=== PATIENT | female | born 1955 | race Caucasian/White ===

== ENCOUNTER 2016-09-21 08:00 | Inpatient (IN) ==
[2016-09-15 16:00] LABS: Basophils # (Auto) 0 K/mcL (0.0-0.3); Basophils % (Auto) 0.5 % (0.0-2.0); Eosinophils # (Auto) 0.3 K/mcL (0.0-0.7); Eosinophils % (Auto) 2.7 % (0.0-7.0); Granulocytes % (Auto) 53.7 % (38.0-78.0); Lymphocytes # (Auto) 3.4 K/mcL (1.5-4.8); Lymphocytes % (Auto) 36.5 % (15.5-49.0); Mean Cell Volume 88.3 fL (80.0-100.0); Mean Corpuscular HGB Conc 31.8 g/dL (31.0-36.0); Mean Corpuscular Hemoglobin 28.1 pg (26.0-34.0); Monocytes # (Auto) 0.6 K/mcL (0.1-0.9); Monocytes % (Auto) 6.6 % (1.0-9.0); Platelet Count 301 K/mcL (140-440); RBC 4.87 M/mcL (4.00-5.20); Red Cell Distribution Width 13.1 % (11.5-14.5)
[2016-09-15 16:08] LABS: Blood Urea Nitrogen 20 mg/dl (8-23)
[~2016-09-21 08:00] MED LIST: ACETAMINOPHEN 500 MG TABLET PO SCH; CELECOXIB 200 MG CAPSULE PO SCH; PREGABALIN 150 MG CAPSULE PO SCH; ceFAZolin 1 GM VIAL IV SCH; oxyCODONE 10 MG TAB.ER.12H PO SCH
[2016-09-21 09:37] LABS: Appearance,Urine CLOUDY; Bacteria,Urine MANY /hpf (0); Bilirubin,Urine NEG (NEG); Color,Urine YELLOW; Glucose,Urine (UA) NEGATIVE (NEG); Leukocyte Esterase,Urine 25 /uL (NEG); Mucus,Urine MOD /hpf (0); Nitrate,Urine NEG (NEG); Protein,Urine NEG (NEG); Specific Gravity,Urine 1.017 (1.000-1.035); Urine Amorphous Crystals MANY /hpf (0); Urine Blood 0.03 mg/dL (<0.03); Urine RBC 5 /hpf (0-1); Urine Squamous Epithelial Cell 15 /hpf (0-4); Urine WBC 9 /hpf (0-4); Urobilinogen,Urine NEG (NEG)
[2016-09-21] MEDS ORDERED: LIDOCAINE HCL/PF 100 MG/5 ML SYRINGE IV ONE (12:15)
[2016-09-21] MEDS ORDERED: ONDANSETRON 4 MG/2 ML VIAL IV ONE (12:15)
[2016-09-21] MEDS ORDERED: DEXAMETHASONE 10 MG/ML VIAL IV ONE (12:15)
[2016-09-21] MEDS ORDERED: PROPOFOL 200 MG/20 ML VIAL IV ONE (12:15)
[2016-09-21] MEDS ORDERED: SUCCINYLCHOLINE 20 MG/ML ML IV ONE (12:15)
[2016-09-21] MEDS ORDERED: ePHEDrine 50 MG/ML AMPUL IV ONE (12:15)
[2016-09-21] MEDS ORDERED: MIDAZOLAM 5 MG/5 ML VIAL IV ONE (12:15)
[2016-09-21] MEDS ORDERED: TRANEXAMIC ACID 1,000 MG/10 ML VIAL IV ONE ×2 (12:15→13:42)
[2016-09-21] MEDS ORDERED: PHENYLEPHRINE 10 MG/ML VIAL IV ONE (12:15)
[2016-09-21] MEDS ORDERED: ROCURONIUM 10 MG/ML ML IV ONE (12:15)
[2016-09-21] MEDS ORDERED: GENTAMICIN SULFATE 800 MG/20 ML VIAL IR ONE (12:48)
[2016-09-21] MEDS ORDERED: FLUMAZENIL 0.1 MG/ML ML IV PRN (13:26)
[2016-09-21] MEDS ORDERED: ONDANSETRON 4 MG/2 ML VIAL IV PRN ×2 (13:26→13:42)
[2016-09-21] MEDS ORDERED: PROMETHAZINE 25 MG/ML VIAL IM ONE (13:26)
[2016-09-21] MEDS ORDERED: NALOXONE HCL 0.4 MG/ML VIAL IV PRN (13:26)
[2016-09-21] MEDS ORDERED: IPRATROPIUM/ALBUTEROL 3 ML AMPUL.NEB NEB PRN (13:26)
[2016-09-21] MEDS ORDERED: BENZOCAINE/MENTHOL 1 LOZENGE PO PRN ×2 (13:26→13:42)
[2016-09-21] MEDS ORDERED: HYDROmorphone 2 MG/ML SYRINGE IV PRN ×2 (13:26→13:42)
[2016-09-21] MEDS ORDERED: diphenhydrAMINE 50 MG/ML VIAL IV PRN (13:26)
[2016-09-21] MEDS ORDERED: LACTATED RINGERS 250 ML IV PRN (13:26)
[2016-09-21] MEDS ORDERED: MEPERIDINE 25 MG/ML SYRINGE IV PRN (13:26)
[2016-09-21] MEDS ORDERED: PROMETHAZINE 25 MG/ML VIAL IV PRN (13:26)
[2016-09-21] MEDS ORDERED: METHOCARBAMOL 1,000 MG/10 ML VIAL IV PRN (13:26)
[2016-09-21] MEDS ORDERED: METOCLOPRAMIDE 10 MG/2 ML VIAL IV PRN (13:26)
[2016-09-21] MEDS ORDERED: ePHEDrine 50 MG/ML AMPUL IV PRN (13:26)
[2016-09-21] MEDS ORDERED: fentaNYL 100 MCG/2 ML VIAL IV PRN (13:26)
[2016-09-21] MEDS ORDERED: MEPERIDINE 50 MG/ML SYRINGE IM ONE (13:26)
[2016-09-21] MEDS ORDERED: LACTATED RINGERS 1,000 ML IV SCH (13:30)
[2016-09-21] MEDS ORDERED: MAGNESIUM HYDROXIDE 30 ML ORAL.SUSP PO PRN (13:42)
[2016-09-21] MEDS ORDERED: KETOROLAC 15 MG/ML VIAL IV PRN (13:42)
[2016-09-21] MEDS ORDERED: BISACODYL 10 MG SUPP.RECT PR PRN (13:42)
[2016-09-21] MEDS ORDERED: POLYETHYLENE GLYCOL 3350 17 GM PACKET PO PRN (13:42)
[2016-09-21] MEDS ORDERED: FLEETS ADULT ENEMA PR PRN (13:42)
[2016-09-21] MEDS ORDERED: ACETAMINOPHEN 325 MG TABLET PO PRN (13:42)
--- NOTE | 2016-09-21 13:48 | Brief Operative Note ---
Date of procedure: 09/21/16 Pre-op diagnosis: right hip djd Post-op diagnosis: same Procedure: right total hip cemented Grafts/Implants: Yes Anesthesia: GETA Findings: severe djd Surgeon: Milton Keys Per Diem Clerk: Atul Owens Estimated blood loss (cc): 50 Specimens Removed/Pathology: none sent Condition: stable Disposition: PACU
[2016-09-21] MEDS ORDERED: NAPROXEN 250 MG TABLET PO PRN (13:53)
--- NOTE | 2016-09-21 14:29 | XRay Report ---
CLINICAL INFORMATION: Pelvis and right hip TECHNIQUE: AP pelvis. AP and lateral right hip. COMPARISON: None. FINDINGS: Status right total hip arthroplasty. Acetabular and femoral head complements are in anatomic positions. There is degenerative joint disease in the left hip. Degenerative disc disease in the lower lumbar spine. IMPRESSION: Status post right total hip arthroplasty Interpreted and Authenticated by: Dayton Bradshaw 09/21/16
[2016-09-21] MEDS: 0.45 % SODIUM CHLORIDE 1,000 ML IV SCH (15:01)
[2016-09-21] MEDS: 0.9 % SODIUM CHLORIDE 10 ML SYRINGE IV SCH ×2 (15:02→22:04)
--- NOTE | 2016-09-21 15:57 | Operative Note ---
DATE OF OPERATION: 09/21/2016 PREOPERATIVE DIAGNOSIS: Right hip degenerative arthritis. POSTOPERATIVE DIAGNOSIS: Right hip degenerative arthritis. PROCEDURE: Right total hip arthroplasty with the superior posterior approach. SURGEON: Milton Keys MD. HUB CUTTER APPRENTICE: Atul Owens PA-C. ANESTHESIA: General LMA anesthesia. COMPLICATIONS: None. ESTIMATED BLOOD LOSS: About 50 mL. IMPLANTS: A cemented 5 stem with a 52 cup with one 30 mm screw with a dual mobility liner and a +2.5 neck length. X-rays were taken during the case. DESCRIPTION OF PROCEDURE: The patient was brought to the operating room and put to sleep with general LMA anesthesia. Once asleep, the patient had the right hip sterilely prepped and draped in the left lateral position. The superior posterior approach was performed. Once this was sterilely prepped and draped, we placed Ioban over the skin and made a superior posterior approach. We identified the capsule which was released superiorly, kept intact the anterior and posterior musculature. We dislocated the hip superior posteriorly and made our neck cut at 30 mm from the center of rotation of the ball. Once this was cut, we then subluxed the hip anteriorly with retractors, removed the labrum and reamed up to the size 52. Once this was done, we then implanted a 52 cup with a 30 mm screw, placed a dual mobility liner. We then prepared the femur, broached up to the size 5, trialed the size 5 cementless stem. The 2.5 seemed to be the most appropriate. We then took an x-ray to confirm that this leg was slightly longer, as the other side has severe arthritis as well. This was appropriate for length. We then cemented into place this 5 stem with a distal canal restrictor, placed the version of about 10 to 15 degrees of anteversion. Excess cement was removed. Once dry, we retrialed the 2.5 neck length. It was appropriate with a ceramic head. Dual mobility ball was finally implanted with a 2.5 mm neck length. We irrigated thoroughly, and closed the capsule with #2 Ethibond, closed the fascial layer with 2-0 Vicryl and 0 Vicryl. We closed the skin with 0 Vicryl and 2-0 Vicryl and adhesive closure. The patient tolerated this well without complication. BIANKA:mayra Job ID: [id number] Doc ID: [id number] Milton Keys MD
[2016-09-21] MEDS: HYDROcodone/APAP 10/325MG TABLET PO PRN ×2 (18:46→20:09)
[2016-09-21] MEDS: SENNOSIDES 1 TABLET PO SCH (20:42)
[2016-09-21] MEDS: metFORMIN 500 MG TABLET PO SCH (20:42)
[2016-09-21] MEDS: ATORVASTATIN 20 MG TABLET PO SCH (20:42)
[2016-09-21] MEDS: ASPIRIN 325 MG ENTERIC COATED TABLET PO SCH (20:43)
[2016-09-21] MEDS: oxyCODONE 10 MG TAB.ER.12H PO SCH (20:43)
[2016-09-21] MEDS: DOCUSATE SODIUM 100 MG CAPSULE PO SCH (20:43)
[2016-09-21] MEDS: ceFAZolin 1 GM VIAL IV SCH (20:44)
[2016-09-21] MEDS: TEMAZEPAM 15 MG CAPSULE PO PRN (22:34)
[2016-09-22] MEDS: HYDROcodone/APAP 10/325MG TABLET PO PRN ×2 (01:38→10:33)
[2016-09-22] MEDS: 0.45 % SODIUM CHLORIDE 1,000 ML IV SCH ×3 (01:42→22:17)
[2016-09-22] MEDS: ceFAZolin 1 GM VIAL IV SCH (03:59)
[2016-09-22] MEDS: 0.9 % SODIUM CHLORIDE 10 ML SYRINGE IV SCH ×3 (05:49→23:53)
[2016-09-22] MEDS: PANTOPRAZOLE 40 MG TABLET PO SCH (07:51)
--- NOTE | 2016-09-22 08:01 | Orthopedic Progress Note ---
Subjective Patient information: Note initiated : 09/22/16 at 7:59 am Service Date, if different from initiated Date: [] Patient: Lauren Villela 61 y/o F admitted on 09/21/16 for Right Total Hip Arthroplasty. Chief Complaint: [Pt is stable this morning on post operative day 1 without any significant concerns or complaints. Patients vital signs have remained stable. Patients dressing is dry and exhibits a grossly intact neurovascular and neuromotor exam. Patients 10 point ROS is otherwise negative. ] Objective Vital signs: Vital Signs Temp Pulse Pulse Resp BP Pulse Ox 09/22/16 07:54 91 H 94 09/22/16 07:28 98.1 F 84 18 107/74 93 09/22/16 07:00 93 09/22/16 04:34 92 09/22/16 04:00 97.5 F L 88 18 109/72 92 09/22/16 03:00 91 09/22/16 01:00 90 09/22/16 00:00 98.1 F 99 H 18 90/55 90 09/21/16 23:00 90 09/21/16 20:00 98.0 F 95 H 18 101/64 90 09/21/16 19:00 90 09/21/16 17:58 87 101/70 95 09/21/16 17:00 99 09/21/16 16:38 84 106/69 94 09/21/16 16:23 83 106/71 97 09/21/16 16:08 79 95/60 92 09/21/16 15:53 84 76/49 96 09/21/16 15:22 77 99/70 93 09/21/16 15:14 99 09/21/16 15:07 81 108/74 100 09/21/16 14:53 82 92/61 95 09/21/16 14:42 98.8 F 85 16 88/54 96 09/21/16 14:30 90 19 88/57 96 09/21/16 14:15 87 17 95/53 100 09/21/16 14:00 98 F 90 18 88/49 98 09/21/16 13:42 98 09/21/16 08:28 98.1 F 85 12 96/72 90 09/21/16 08:10 20 Intake and Output 09/21/16 09/22/16 09/22/16 21:59 05:59 13:59 Intake Total 1800 / 1800 1100 / 1100 Output Total 1575 / 1575 250 / 250 150 / 150 Balance 225 / 225 850 / 850 -150 / -150 Intake: IV 1800 / 1800 1000 / 1000 Sodium Chloride 0.45% 1, 1000 / 1000 000 ml @ 100 mls/hr IV . Q10H [facility] Rx#:[id number] Oral 100 / 100 Output: Void Amount 1375 / 1375 250 / 250 150 / 150 Straight 325 / 325 Estimated Blood Loss 200 / 200 Other: Meal Lunch Percent of Meal Consumed 100% # Voids 1 Weight 209 lb 6.4 oz Intake & Output: Intake & Output 09/21/16 09/22/16 09/22/16 21:59 05:59 13:59 Intake Total 1800 / 1800 1100 / 1100 Output Total 1575 / 1575 250 / 250 150 / 150 Balance 225 / 225 850 / 850 -150 / -150 Weight 209 lb 6.4 oz Intake: IV 1800 / 1800 1000 / 1000 Sodium Chloride 0.45% 1, 1000 / 1000 000 ml @ 100 mls/hr IV . Q10H [facility] Rx#:[id number] Oral 100 / 100 Output: Void Amount 1375 / 1375 250 / 250 150 / 150 Straight 325 / 325 Estimated Blood Loss 200 / 200 Other: Meal Lunch Percent of Meal Consumed 100% # Voids 1 Incision: Yes healing Incision clean and dry: Yes Dressing: Yes clean, Yes dry Weight bearing status: full Neurological exam IM: Yes motor sensory intact, Yes neurovascular intact Extremities exam IM: Yes Foot pink and warm, Yes neurovascular intact - Labs CBC & BMP: 09/22/16 05:15 09/15/16 14:01 Labs: Orthopedic Labs 09/15/16 14:01 PT 13.0 INR 1.0 APTT 27 09/22/16 09/15/16 05:15 14:01 Hgb 13.7 Hct 36.4 43.0 Assessment and Plan (1) Hx of total hip arthroplasty Patient has been educated regarding wound care and dressings, follow up recommendations, and medication use. We will f/u with the patient within 2-3 weeks for wound check. Status: Acute
--- NOTE | 2016-09-22 08:03 | Discharge Summary ---
Ortho Discharge - [facility] - Patient Instructions Diet: Regular Diet Activity: activity as tolerated, weight bearing as tolerated Total Hip Protocol: Follow activity instructions as provided by Physical Therapy. Dressing Care: May shower in 2 days Additional Instructions: Do the exercises at home that Physical therapy gave you. Wear comfortable clothes . Take photo ID and insurance cards with you to physical therapy and to pickling machine operator any equipment such as crutches walker, toilet riser. Consider taking pain meds 45 min before physical therapy appointment. You have Dermabond (a dressing with a mesh-like appearance), leave open to air. You may start showering on post op day #2. The Dermabond dressing can get wet, do not scrub dressing. Pat dry. Use over the counter stool softeners or laxatives to avoid constipation associated with narcotic use. Call your physician for fever greater than 100.5 or pain not controlled by medication. Your prescriptions are with your discharge information. Some medications were electronically transmitted to your pharmacy of choice. - Problem Maintenance (1) Hx of total hip arthroplasty Status: Acute - Follow Up Plan Follow Up Appointments: Milton Keys MD [Physician] - 10/06/16 1:10 pm Disposition: Home, Self-Care Prognosis: Good Rehab Potential: Good I certify that the patient requires SNF services: Yes Overall status at discharge: patient is progressing back to baseline - Orders For Discharge Prescriptions: Aspirin [Ecotrin] 325 mg PO BID #60 tab.ec Docusate Sodium [Colace] 100 mg PO BID #60 capsule HYDROcodone/APAP 10/325MG [Donovan 10/325Mg] 1 - 2 tab PO Q4HP PRN #75 tablet PRN Reason: Pain
[2016-09-22] MEDS: GLIMEPIRIDE 2 MG TABLET PO SCH (08:23)
[2016-09-22] MEDS: CALCIUM W/VIT D3 500 MG TABLET PO SCH (08:24)
[2016-09-22] MEDS: DOCUSATE SODIUM 100 MG CAPSULE PO SCH ×2 (08:24→21:08)
[2016-09-22] MEDS: HYDROCHLOROTHIAZIDE 25 MG TABLET PO SCH (08:24)
[2016-09-22] MEDS: MAGNESIUM OXIDE 400 MG TABLET PO SCH (08:24)
[2016-09-22] MEDS: LISINOPRIL 20 MG TABLET PO SCH (08:24)
[2016-09-22] MEDS: VITAMIN D3 1,000 UNIT TABLET PO SCH (08:24)
[2016-09-22] MEDS: ASPIRIN 325 MG ENTERIC COATED TABLET PO SCH ×2 (08:24→21:08)
[2016-09-22] MEDS: oxyCODONE 10 MG TAB.ER.12H PO SCH ×2 (08:24→21:08)
[2016-09-22] MEDS: ATORVASTATIN 20 MG TABLET PO SCH (21:08)
[2016-09-22] MEDS: TEMAZEPAM 15 MG CAPSULE PO PRN (21:08)
[2016-09-22] MEDS: metFORMIN 500 MG TABLET PO SCH (21:08)
[2016-09-22] MEDS: SENNOSIDES 1 TABLET PO SCH (21:08)
[2016-09-23] MEDS: 0.45 % SODIUM CHLORIDE 1,000 ML IV SCH (06:01)
[2016-09-23] MEDS: 0.9 % SODIUM CHLORIDE 10 ML SYRINGE IV SCH (06:01)
[2016-09-23] MEDS: HYDROcodone/APAP 10/325MG TABLET PO PRN ×2 (07:27→12:55)
[2016-09-23] MEDS: PANTOPRAZOLE 40 MG TABLET PO SCH (07:27)
[2016-09-23] MEDS: GLIMEPIRIDE 2 MG TABLET PO SCH (07:28)
[2016-09-23] MEDS: HYDROCHLOROTHIAZIDE 25 MG TABLET PO SCH (08:45)
[2016-09-23] MEDS: ASPIRIN 325 MG ENTERIC COATED TABLET PO SCH (08:45)
[2016-09-23] MEDS: MAGNESIUM OXIDE 400 MG TABLET PO SCH (08:45)
[2016-09-23] MEDS: VITAMIN D3 1,000 UNIT TABLET PO SCH (08:45)
[2016-09-23] MEDS: CALCIUM W/VIT D3 500 MG TABLET PO SCH (08:45)
[2016-09-23] MEDS: LISINOPRIL 20 MG TABLET PO SCH (08:45)
[2016-09-23] MEDS: DOCUSATE SODIUM 100 MG CAPSULE PO SCH (08:46)
== END 2016-09-23 15:00 | disposition home or self-care (01) | DRG 470 ==
LOC: MEDSUR 08:00
PROVIDERS: ADMIT Orthopaedic Surgery; ATTEND Orthopaedic Surgery